=== PATIENT | female | born 1935 | race Caucasian/White ===

== ENCOUNTER 2025-01-16 12:57 | Emergency (ER) | payer OTHER, SELFPAY ==
[2025-01-16 13:00] VITALS: BP 185/85
--- NOTE | 2025-01-16 13:06 | ED.GENMED ---
History of Present Illness
General
Chief Complaint: Fall
Time Seen by Provider: 01/16/25 13:06
History of Present Illness
History of Present Illness:
FOCUSED PAST MEDICAL HISTORY
- High blood pressure, hyperlipidemia
REVIEW OF OLD RECORDS
- In 2022, the patient was admitted with increasing confusion on top of baseline advanced dementia; at that time she was treated for the possibility of a UTI
Note:
CHIEF COMPLAINT(S)
Head injury with bleeding from the left ear.
HISTORY OF PRESENT ILLNESS
The patient is an 89-year-old female with a history of multiple strokes, presenting to the emergency department due to trauma sustained in her living room. Her caregiver and daughter reported that while preparing to leave for a doctors appointment,
the patient leaned against a wall and subsequently fell backward, striking her head against the wall. Her daughter noted immediate pain in the area and observed that the injury was bleeding. Historically, the patient has difficulty hearing from her
left ear and experiences significant facial pain. The daughter also mentioned frequent urinary tract infections, with the patient having recently completed an antibiotic course. There were no symptoms of midline spinal pain, but localized pain was
noted at the site of impact. A computed tomography (CT) scan was ordered to rule out intracranial bleeding. The patient is prone to prolonged bleeding, potentially due to current or prior use of blood-thinning medications.
SOCIAL DETERMINANTS AFFECTING HEALTH
The patient�s daughter serves as her primary caregiver. This living arrangement provides the patient with daily assistance and support for her medical needs.
IMMUNIZATION HISTORY
The patient�s tetanus immunization is questionable; a tetanus booster was ordered to ensure her protection.
REVIEW OF SYSTEMS
- Head: Recent trauma causing pain and bleeding from the left ear.
- Ears: Impaired hearing in the left ear.
- Genitourinary: History of frequent urinary tract infections.
- Pain: Facial pain associated with prior strokes.
PHYSICAL EXAM
- General: The patient appears chronically weak and debilitated
- Head: There is a regular hematoma at the superior portion of the earlobe which is relatively minor however there is a puncture wound in the center of the left upper earlobe with scant active bleeding which was cleaned with saline
- C-spine: No midline c-spine tenderness; normal AROM of C-spine
- Back: Normal AROM thoracolumbar spine
- HEENT: Moist oral mucosa, no blood
- Cardiovascular: No murmurs, normal heart rate, regular rhythm, No chest wall tenderness
- Pulmonary: No respiratory distress, breath sounds are clear and equal
- Abdomen: Soft with no peritoneal signs, no tenderness
- Neurologic: Fair strength in all extremities
- Psychiatric: Very limited insight and judgment, provides no meaningful history but was able to say 'my head'
- Extremities: Nontender, no edema, moves all extremities equally
- Skin: No rash, no lesions
PLAN
1. Order a CT scan of the head to evaluate for intracranial injuries.
2. Clean and possibly suture the ear laceration.
3. Administer tetanus booster due to uncertain immunization status.
4. Monitor for possible need for transfer to a higher-level care facility if CT reveals any significant intracranial findings.
DIFFERENTIAL DIAGNOSIS
The Differential Diagnosis includes, in no particular order and is not limited to:
1. Intracranial hemorrhage
2. Basilar skull fracture
3. External ear laceration
4. Concussion
5. Contusion
6. Epistaxis
7. Subdural hematoma
8. Temporal bone fracture
9. Vertigo
10. Headache secondary to trauma
RADIOLOGY
- CT head obtained and shows no acute abnormality
SUMMARY OF ENCOUNTER
The patient, an 89-year-old female with a history of multiple strokes, was seen in the emergency department for a head injury with bleeding from the left ear following a fall. A CT scan of the head was ordered to assess for intracranial injuries,
which returned normal with no signs of internal bleeding or abnormalities in the brain. The ear injury was noted as a puncture wound that bled significantly, likely due to a hematoma. The decision was made to use adhesive glue to control the
bleeding.
PLAN
1. Administer tetanus booster due to uncertain immunization status.
2. Clean the ear wound and apply Dermabond (stronger adhesive) to control bleeding.
INDEPENDENT REVIEW OF LABS AND INTERPRETATION OF TESTS
My independent interpretation of the CT scan shows no intracranial bleeding or brain abnormalities.
PROCEDURES
Application of Dermabond to the left ear wound for bleeding control.
FOLLOW-UP INSTRUCTIONS
The patient should schedule follow-up with her primary care physician to monitor the ear injury and ensure proper healing.
MEDICAL DECISION MAKING
- Complexity of Data Reviewed: Chronic conditions affecting care include multiple strokes and left ear hearing impairment. Differential Diagnosis includes:
1. Intracranial hemorrhage
2. Basilar skull fracture
3. External ear laceration
4. Concussion
5. Contusion
6. Epistaxis
7. Subdural hematoma
8. Temporal bone fracture
9. Vertigo
10. Headache secondary to trauma
- Data:
Category 1
Clinical information was obtained from the patients daughter, who provided historical insights and current symptomatology.
Category 2
My independent interpretation of the CT scan indicated no intracranial bleeding.
- Risk:
Prescription medication was prescribed including tetanus booster.
Care significantly affected by Social Determinants of Health: The patients daughter is the primary caregiver, impacting the patients daily care and health management.
DIAGNOSIS
1. Traumatic ear laceration, ICD-10 Code: S01.311A
2. Fall-related injury, ICD-10 Code: W19.XXXA
Past History
Past History
ED Past Medical History: CVA, HTN and Other (dementia)
Social History
Tobacco: Non-smoker
Alcohol: None
Phy Exam
Physical Exam
Physical Exam:
See HPI
Course
Orders/Labs/Results
Orders:
Orders
01/16/25 13:16
CT Head W/o Iv Contrast Urgent
Comment:
Reason For Exam: trauma L side
Tetanus/Diphth/Acelpertussis [Adacel] 0.5 ml IM .ONCE ONE
Vital Signs
Initial and Last Documented VS:
Initial Vital Signs
Temp Pulse Resp BP Pulse Ox
36.8 C 77 15 185/85 98
01/16/25 13:00 01/16/25 13:00 01/16/25 13:00 01/16/25 13:00 01/16/25 13:00
Last Documented Vital Signs
Temp Pulse Resp BP Pulse Ox
36.8 C 77 15 185/85 98
01/16/25 13:00 01/16/25 13:00 01/16/25 13:00 01/16/25 13:00 01/16/25 13:07
Procedures
Laceration Closure
Left Superior Ear:
Status of Wound: clean
Size of Wound in cm: 0.5
Description of Wound Edges: ragged
Type of Closure: Dermabond-skin glue
*Pulse Oximetry
SaO2: 98
Oxygen Mode of Delivery: Room air
Patient hypoxic: no
*Critical Care Note
Total Time (30-74mins, 75-104mins- exclusive of procedures): Not Applicable
ED Attending Note
-
Portions of this chart may have been created with voice recognition software.� Occasional wrong word or��sound alike� substitutions may have occurred due to the inherent limitations of voice recognition software.
Discharge Plan
Departure
Patient Disposition: Home (Routine Discharge)
Date of Disposition: 01/16/25
Time of Disposition: 15:39
Patient with high blood pressure during this ER visit?: Yes
Discharge Problem:
Laceration of ear, Head injury
Instructions: Laceration Repair With Glue (DC), BLOOD PRESSURE
Prescriptions:
No Action
clopidogrel 75 MG tablet
75 mg PO DAILY
amlodipine 5 MG tablet
5 mg PO DAILY
omeprazole 40 MG capsule,delayed release(DR/EC)
40 mg PO DAILY
carbamazepine 200 MG tablet
200 mg PO BID
folic acid 1 MG tablet
1 mg PO DAILY
potassium chloride 10 MEQ tablet,ER particles/crystals
10 meq PO BID
memantine 10 MG tablet
10 mg PO BID
Gemtesa 75 MG tablet
75 mg PO DAILY
trazodone 100 mg Tablet
100 mg PO HS
cetirizine 10 mg Tablet
10 mg PO DAILY
oxybutynin chloride 10 mg tablet extended release 24hr
10 mg PO DAILY
risperidone 0.25 mg Tablet
0.25 mg PO DAILY
fluoxetine 20 mg capsule
20 mg PO DAILY
fluticasone propionate 50 mcg/actuation [place],Suspension
1 spray INTRANASAL DAILY
quetiapine 50 mg tablet
50 mg PO HS
omega 6-vkj-msh-fish oil [Fish Oil] 1,000 mg (120 mg-180 mg) Capsule
1 cap PO DAILY
cefdinir 300 mg capsule
300 mg PO BID Qty: 10 0RF
Referrals:
UNKNOWN - PT DOES,NOT KNOW [Family Provider]
Activity Restrictions/Additional Instructions:
Return here if worse or other concerns. CAT scan of the brain shows no bleeding around the brain. I used Dermabond tissue adhesive to close the wound of the left ear. We updated your tetanus status.
Interventions
Interventions:
*Risk Screen - Suicide Last Done: 01/16/25 13:00
*General Assessment Last Done: 01/16/25 13:00
*Neglect/Abuse Screening Last Done: 01/16/25 13:00
*ED- Fall Risk Assessment Last Done: 01/16/25 15:47
*ED COVID-19 Vaccine History Last Done: 01/16/25 13:00
*ED Influenza Vaccine History Last Done: 01/16/25 13:00
*Nursing Disposition Last Done: 01/16/25 15:47
ED-Musculoskeletal Assessment Last Done: 01/16/25 13:34
ED- Neurological Assessment Last Done: 01/16/25 13:34
ED-Skin Assessment Last Done: 01/16/25 13:34
Discharge Date and Time
Discharge Date/Time: 01/16/25 15:58
Print Language: PORTUGUESE
[2025-01-16] MEDS: ADACEL 0.5 ML IM (13:29)
== END 2025-01-16 15:58 | disposition home or self-care (01) ==
LOC: EMR 12:57
PROVIDERS: EMERGENCY PHYSICIAN Emergency Medicine
DX: S09.90XA Unspecified injury of head, initial encounter (principal); S01.312A Laceration without foreign body of left ear, initial encounter; W19.XXXA Unspecified fall, initial encounter; Y93.9 Activity, unspecified; Y92.098 Other place in other non-institutional residence as the place of occurrence of the external cause; E78.5 Hyperlipidemia, unspecified; I10 Essential (primary) hypertension; Z86.73 Personal history of transient ischemic attack (TIA), and cerebral infarction without residual deficits; F03.90 Unspecified dementia, unspecified severity, without behavioral disturbance, psychotic disturbance, mood disturbance, and anxiety; Z23 Encounter for immunization
CPT/HCPCS: 12011; 99284; 90471; 70450; 90715

== ENCOUNTER 2025-03-31 20:54 | Emergency (ER) | payer OTHER, SELFPAY ==
[2025-03-31 20:59] VITALS: BP 150/78
[2025-03-31 21:02] VITALS: BP 150/78
[2025-03-31 21:07] VITALS: BMI 25.0
[2025-03-31 21:30] LABS: Hematocrit 31.6 % (37.0-47.0); Hemoglobin 10.8 g/dL (12.0-16.0); Mean Corp Hgb Conc. 34.2 g/dL (33.0-37.0); Mean Corpuscular Volume 84.3 fL (81.0-99.0); Nucleated Red Blood Cells % 0 %; Platelet Count 149 10^3/uL (130-400); Red Cell Dist. Width 14.5 % (11.5-14.5)
[2025-03-31 21:49] LABS: ALT (SGPT) 15 U/L (0-35); AST (SGOT) 25 U/L (14-36); Albumin 4.2 g/dl (3.5-5.0); Alkaline Phosphatase 163 U/L (38-126); Blood Urea Nitrogen 19 mg/dl (7-17); Calcium 9.5 mg/dl (8.4-10.2); Carbon Dioxide 28 mmol/L (22-30); Chloride 101 mmol/L (98-107); Estimated Creatinine Clearance 49 ml/min; Glucose 104 mg/dl (70-99); Potassium 3.9 mmol/L (3.5-5.1); Sodium 135 mmol/L (135-145); Total Protein 6.8 g/dl (6.3-8.2); eGFR > 60.00
[2025-03-31 22:00] VITALS: BP 125/55
[2025-03-31 23:00] VITALS: BP 116/60
[2025-04-01] MEDS: HALDOL 2 MG IV (01:33)
--- NOTE | 2025-04-01 02:22 | ED.GENMED ---
History of Present Illness
General
Chief Complaint: Fall
Source: family (daughter)
Time Seen by Provider: 04/01/25 01:47
History of Present Illness
History of Present Illness:
89-year-old female brought to the emergency room by her daughter because the patient's had multiple falls. She has had 3 falls just in this evening. Patient does have fairly significant dementia. She lives in a private home with her cousin.
Patient's daughter states that typically the patient does not fall. She has had urinary tract infections in the past. Patient is also been more resistant to care recently. The patient herself is unable to provide any history due to dementia.
Past History
Past History
ED Past Medical History: CVA, HTN and Other (dementia)
Social History
Tobacco: Non-smoker
Alcohol: None
Phy Exam
Physical Exam
Physical Exam:
General: Awake, confused, appears chronically ill
Vitals: unremarkable
Head: Atraumatic
Eyes: Pupils equal, EOMI
Throat: Airway intact, no exudates, dry mucosa
Neck: Trachea midline
Lungs: Clear and equal b/l
Heart: Regular rate, no murmurs
Abd: Soft, Nontender, No pulsatile mass
Neuro: Grossly nonfocal
Skin: Warm, dry, no rash
Extremities: pulses equal b/l, no edema
Course
Orders/Labs/Results
Orders:
Orders
03/31/25 21:20
CMP [Comprehensive Metabolic Panel] Urgent
Complete Blood Count/With Diff Urgent
04/01/25 00:[address] [CT Head W/o Iv Contrast] Urgent
Comment:
Reason For Exam: fall on thinners
04/01/25 01:30
Haloperidol Lactate [Haldol] 2 mg IV NOW STA
04/01/25 01:31
CT Cervical Spine W/o Iv Contr Urgent
Comment:
Reason For Exam: fall, head strike
04/01/25 01:38
Electrocardiogram (*1) Urgent
Reason for Study: QTc Monitoring
04/01/25 01:39
EKG- Treatment ONCE
04/01/25 02:21
Lorazepam [Ativan] 1 mg IV NOW STA
04/01/25 04:36
Urinalysis Reflex To Culture Urgent
Date Specimen was Collected: 04/01/25
Time Specimen was Collected: 04:31
Urine Microscopic Reflex Cult Urgent
04/01/25 06:13
Case Management Consult ONCE
Case Management Consult: Discharge Planning
Abnormal Lab Results
03/31/25 04/01/25
21:20 04:36
RBC 3.75 L 10^6/uL
(4.20-5.40)
Hgb 10.8 L g/dL
(12.0-16.0)
Hct 31.6 L %
(37.0-47.0)
Absolute Lymphs (auto) 0.5 L 10^3/uL
(1.2-3.4)
Immature Gran % 0.6 H %
(0-0.5)
Neutrophils % 83.5 H %
(42.2-75.2)
Lymphocytes % 7.7 L %
(20.5-51.1)
BUN 19 H mg/dl
(7-17)
Glucose 104 H mg/dl
(70-99)
Alkaline Phosphatase 163 H U/L
(38-126)
Urine Albumin (Reflex) 1+ A
(Neg - Trace)
03/31/25 21:20
03/31/25 21:20
Vital Signs
Initial and Last Documented VS:
Initial Vital Signs
Temp Pulse Resp BP Pulse Ox
98.8 F 80 16 150/78 95
03/31/25 20:59 03/31/25 20:59 03/31/25 20:59 03/31/25 20:59 03/31/25 20:59
Last Documented Vital Signs
Temp Pulse Resp BP Pulse Ox
99.7 F 80 22 139/68 90
04/01/25 04:00 04/01/25 06:00 04/01/25 05:15 04/01/25 03:00 04/01/25 06:00
MDM/Problems Addressed
Differential Diagnosis Includes:
Subdural, CVA, UTI, electrolyte abnormality, dehydration
MDM/Problems Addressed:
Patient presents for frequent falls, weakness. Patient has fairly advanced dementia. She has been cared for in the home. Patient resides with her cousin who is of similar age. Patient's daughter visits frequently. However the patient's cousin
wants a home has not allowed visiting nurses or aids into the home. There is no evidence of an acute process at this time. The patient has labs which are quite acceptable. Urinalysis showed no evidence for UTI. Head CT shows chronic changes but
nothing acute. Overall does not appear that the patient requires admission to an acute care hospital. We will consult case management for discharge planning of either home nursing versus senior care.
*Radiology
Radiology exam reviewed: radiology read reviewed
*Pulse Oximetry
SaO2: 91
Oxygen Mode of Delivery: Room air
Patient hypoxic: yes
*EKG
Interpreted by ED Provider?: Yes
Interpretation: abnormal
Heart Rate: 77
Rate: normal
Rhythm: sinus
[place]: normal axis
Interval: normal interval
QRS Pattern: left vent hypertrophy
Ischemia: non-specific ST changes
*Mill Order Scheduler Interpretation
Rate: normal
Interpretation: normal
Rhythm: sinus
*Critical Care Note
Total Time (30-74mins, 75-104mins- exclusive of procedures): Not Applicable
ED Attending Note
-
Portions of this chart may have been created with voice recognition software.� Occasional wrong word or��sound alike� substitutions may have occurred due to the inherent limitations of voice recognition software.
Discharge Plan
Departure
Prescriptions:
No Action
clopidogrel 75 MG tablet
75 mg PO DAILY
amlodipine 5 MG tablet
5 mg PO DAILY
omeprazole 40 MG capsule,delayed release(DR/EC)
40 mg PO DAILY
carbamazepine 200 MG tablet
200 mg PO BID
folic acid 1 MG tablet
1 mg PO DAILY
potassium chloride 10 MEQ tablet,ER particles/crystals
10 meq PO BID
memantine 10 MG tablet
10 mg PO BID
Gemtesa 75 MG tablet
75 mg PO DAILY
trazodone 100 mg Tablet
100 mg PO HS
cetirizine 10 mg Tablet
10 mg PO DAILY
oxybutynin chloride 10 mg tablet extended release 24hr
10 mg PO DAILY
risperidone 0.25 mg Tablet
0.25 mg PO DAILY
fluoxetine 20 mg capsule
20 mg PO DAILY
fluticasone propionate 50 mcg/actuation [place],Suspension
1 spray INTRANASAL DAILY
quetiapine 50 mg tablet
50 mg PO HS
omega 7-wbq-maw-fish oil [Fish Oil] 1,000 mg (120 mg-180 mg) Capsule
1 cap PO DAILY
cefdinir 300 mg capsule
300 mg PO BID Qty: 10 0RF
Referrals:
Valerie Cohen MD [Family Provider, Internal Medicine]
Interventions
Interventions:
*General Assessment Last Done: 03/31/25 21:05
*Neglect/Abuse Screening Last Done: 03/31/25 21:05
*ED COVID-19 Vaccine History Last Done: 03/31/25 21:05
*ED Influenza Vaccine History Last Done: 03/31/25 21:05
[facility] Fall Risk Assessment Tool Last Done: 03/31/25 20:55
*Risk Screen - Suicide (C-SSRS) Last Done: 03/31/25 21:07
ED-Musculoskeletal Assessment Last Done: 03/31/25 23:16
ED- Neurological Assessment Last Done: 03/31/25 23:16
ED-Skin Assessment Last Done: 04/01/25 06:03
Discharge Date and Time
Print Language: LAO
[2025-04-01] MEDS: ATIVAN 1 MG IV (02:27)
[2025-04-01 02:31] VITALS: BP 160/92
[2025-04-01 03:00] VITALS: BP 139/68
[2025-04-01 04:58] LABS: Urine Character Clear (Clear)
[2025-04-01 07:18] VITALS: BP 144/55
[2025-04-01 08:00] VITALS: BP 150/76
[2025-04-01 09:00] VITALS: BP 147/80
--- NOTE | 2025-04-01 09:34 | EDCM ---
Addendum entered by Ivania Oquendo 04/01/25 10:07:
Dr Tucker updated. Daughter will need to be called when pt is ready for discharge.
Original Note:
Consult received, reviewed chart and spoke to pt's daughter Russ over the phone.
Pt lives with Russ and pt's 79yo cousin in 1 [address] with basement. 3 [address] through garage.
Pt is needs assistance with ADLs and personal care, ambulates independently but does had RW. Russ is her caregiver.
No hx VN or SNF.
PCP: Valerie Cohen
Daughter does not want her to go to SNF, agreeable to referral for [facility], referral placed in Care Port. List of private pay caregiver agencies left at bedside.
RN updated.
[2025-04-01 10:00] VITALS: BP 159/73
--- NOTE | 2025-04-01 10:09 | EDRN ---
spoke to daughter Russ, she's on her way to cone picker the patient, states she'll be here within the hour.
== END 2025-04-01 12:10 | disposition home or self-care (01) ==
LOC: EMR 20:54
PROVIDERS: Emergency Medicine; EMERGENCY PHYSICIAN Emergency Medicine; FAMILY PHYSICIAN Internal Medicine
DX: R29.6 Repeated falls (principal); I10 Essential (primary) hypertension; F03.90 Unspecified dementia, unspecified severity, without behavioral disturbance, psychotic disturbance, mood disturbance, and anxiety; R53.1 Weakness; Z86.73 Personal history of transient ischemic attack (TIA), and cerebral infarction without residual deficits; Z87.440 Personal history of urinary (tract) infections
CPT/HCPCS: 99284; 96374; 96375; 70450; 72125; 80053; 81003; 81015; 85025; 93005

== ENCOUNTER 2025-04-02 12:28 | Inpatient (IN) | payer OTHER, SELFPAY ==
[2025-04-02] VITALS (7 sets, daily range): BP systolic 133–169; BP diastolic 78–92
--- NOTE | 2025-04-02 10:08 | ED.GENMED ---
History of Present Illness
General
Chief Complaint: Musculo-Skeletal Complaint
Time Seen by Provider: 04/02/25 10:07
History of Present Illness
History of Present Illness:
FOCUSED PAST MEDICAL HISTORY
- Dementia, high blood pressure
REVIEW OF OLD RECORDS
- The patient was seen here yesterday morning after multiple falls at home. She has advanced dementia. Apparently she does not normally fall. Yesterday, she was given Haldol as she became agitated and was also given Ativan. Case management
evaluated yesterday morning but ultimately daughter was in agreement with having her go back home.
Note:
CHIEF COMPLAINT(S)
Worsening overall functional status and recurrent falls.
HISTORY OF PRESENT ILLNESS
The patient, an 89-year-old female with a past medical history of dementia, presented with a worsening overall functional status characterized by recurrent falls. This condition is atypical for her, prompting concern. She was seen in the Emergency
Room the prior morning, where head and neck CT scans were conducted and returned unremarkable. Despite the scans, her condition has persisted, warranting further medical evaluation. The patient has significant cognitive impairment and is a limited
historian, unable to provide a relevant medical history. On physical examination, advanced dementia is evident, coupled with pain on palpation of the lateral aspect of the right hip and decreased active range of motion in the right hips internal
rotation. She was disoriented to time and place and unable to follow simple commands.
ADDITIONAL HISTORY OBTAINED FROM SOURCES OTHER THAN THE PATIENT
Per EMS, the patient has a history of dementia and was reported to have recurrent falls, which are uncommon for her.
EXTERNAL RECORDS REVIEWED
The patient had a head and neck CT performed during her emergency room visit yesterday, which returned unremarkable.
PHYSICAL EXAM
General: Appears disoriented, advanced dementia noted.
Skin: Warm, dry.
Head: Normocephalic, atraumatic.
Neck: Supple, trachea midline.
Eye Ears, nose, mouth and throat: Oral mucosa moist.
Cardiovascular: Normal peripheral perfusion, No edema.
Respiratory: Respirations are non-labored.
Gastrointestinal: Abdomen nondistended.
Back: Normal range of motion, Normal alignment.
Musculoskeletal: Pain to palpation on the lateral aspect of the right hip, decreased active range of motion at the right hip.
Neurological: Disoriented to month and place, does not follow simple commands.
Psychiatric: Advanced dementia, unable to provide a coherent history.
PROBLEM LIST
Acute:
- Recurrent falls
- Right hip pain
Chronic:
- Dementia
DIFFERENTIAL DIAGNOSIS
The Differential Diagnosis includes, in no particular order and is not limited to:
1. Urinary tract infection
2. Dehydration
3. Cerebrovascular accident
4. Medication side effects
5. Cardiac arrhythmias
6. Orthostatic hypotension
7. Fracture or musculoskeletal injury
8. Delirium
9. Vestibular dysfunction
10. Postural instability due to dementia
SUMMARY OF ENCOUNTER
The patient, an 89-year-old female with a past medical history of advanced dementia, was evaluated in the emergency department for worsening functional status characterized by recurrent falls and recent right hip pain. A hip X-ray was conducted,
revealing what appears to be a subtle fracture at the site where the femur meets the pelvis. This finding was discussed with the radiologist, and it was concluded that the appearance is consistent with a fracture. The patients advanced dementia was
also noted as she was disoriented and unable to perform simple tasks or follow commands.
DISPOSITION
Admit.
ASSESSMENT
The patient presents with a possible right hip fracture alongside her advanced dementia, which complicates her ability to provide a history or engage in simple tasks.
INDEPENDENT REVIEW OF LABS AND INTERPRETATION OF TESTS
My independent interpretation of the hip X-ray indicates a subtle fracture of the hip at the junction of the femur and pelvis. This interpretation was confirmed through discussion with the radiologist.
MANAGEMENT OF THE PATIENTS CARE WAS DISCUSSED WITH
I discussed the management plan with the orthopedic doctors and the hospitalist to arrange for the patients admission to the hospital for further evaluation and management.
PLAN
The plan is to admit the patient to the hospital for further management of the suspected hip fracture, which includes consultation with an digital campaign specialist and ongoing monitoring of her cognitive status given her advanced dementia.
MEDICAL DECISION MAKING
- Number and Complexity of Problems Addressed: Chronic conditions affecting care - Dementia, and DDx list includes urinary tract infection, dehydration, cerebrovascular accident, medication side effects, cardiac arrhythmias, orthostatic hypotension,
fracture or musculoskeletal injury, delirium, vestibular dysfunction, postural instability due to dementia.
- Data:
Category 1
Clinical information was obtained from an independent historian (EMS personnel).
Category 3
Discussion of management with orthopedic doctors and the hospitalist concerning the admission for the suspected hip fracture.
- Risk:
Due to the suspected hip fracture and the complexity of her medical condition involving advanced dementia, a decision was made to admit the patient for further evaluation and treatment.
RADIOLOGY
- X-ray right hip shows impacted right subcapital fracture
LABS
- Tegretol level low, CBC unremarkable
UPDATE
- X-ray shows signs of hip fracture
- Discussed with Ortho who also wants CT imaging of the hip for further evaluation of the fracture
Past History
Past History
ED Past Medical History: CVA, HTN and Other (dementia)
Social History
Tobacco: Non-smoker
Alcohol: None
Phy Exam
Physical Exam
Physical Exam:
See HPI
Course
Orders/Labs/Results
Orders:
Orders
04/02/25 10:12
Case Management Consult ONCE
Case Management Consult: Discharge Planning
04/02/25 10:16
CR Hip - RT w/wo Pel 2-3 Vw* Urgent
Comment:
Reason For Exam: pain falls
Include a pelvis x-ray?: Yes
04/02/25 10:25
Complete Blood Count/With Diff Urgent
Tegretol (Carbamazepine) Urgent
04/02/25 10:45
Comprehensive Metabolic Panel Urgent
04/02/25 11:04
CT Pelvis W/o Iv Contrast Urgent
Comment:
Reason For Exam: Dr. Avelar wants CT hip to eval the fx
Abnormal Lab Results
04/02/25
10:25
Hct 36.3 L %
(37.0-47.0)
Absolute Lymphs (auto) 0.7 L 10^3/uL
(1.2-3.4)
Lymphocytes % 12.4 L %
(20.5-51.1)
Monocytes % 9.5 H %
(1.7-9.3)
Carbamazepine < 3.0 L ug/ml
(4-12)
04/02/25 10:25
Vital Signs
Initial and Last Documented VS:
Initial Vital Signs
Temp Pulse Resp BP Pulse Ox
37.6 C 85 16 169/92 97
04/02/25 10:05 04/02/25 10:05 04/02/25 10:05 04/02/25 10:05 04/02/25 10:05
Last Documented Vital Signs
Temp Pulse Resp BP Pulse Ox
37.6 C 85 16 169/92 97
04/02/25 10:05 04/02/25 10:05 04/02/25 10:05 04/02/25 10:05 04/02/25 10:05
*Pulse Oximetry
Patient hypoxic: no
*Critical Care Note
Total Time (30-74mins, 75-104mins- exclusive of procedures): Not Applicable
ED Attending Note
-
Portions of this chart may have been created with voice recognition software.� Occasional wrong word or��sound alike� substitutions may have occurred due to the inherent limitations of voice recognition software.
Discharge Plan
Departure
Patient Disposition: Admit
Date of Disposition: 04/02/25
Time of Disposition: 11:03
Presentation/result/management discussed w/ accepting MD/DO: Hospitalist
Discharge Problem:
Closed subcapital fracture of neck of right femur
Prescriptions:
No Action
clopidogrel 75 MG tablet
75 mg PO DAILY
amlodipine 5 MG tablet
5 mg PO DAILY
omeprazole 40 MG capsule,delayed release(DR/EC)
40 mg PO DAILY
carbamazepine 200 MG tablet
200 mg PO BID
folic acid 1 MG tablet
1 mg PO DAILY
potassium chloride 10 MEQ tablet,ER particles/crystals
10 meq PO BID
memantine 10 MG tablet
10 mg PO BID
Gemtesa 75 MG tablet
75 mg PO DAILY
trazodone 100 mg Tablet
100 mg PO HS
cetirizine 10 mg Tablet
10 mg PO DAILY
oxybutynin chloride 10 mg tablet extended release 24hr
10 mg PO DAILY
risperidone 0.25 mg Tablet
0.25 mg PO DAILY
fluoxetine 20 mg capsule
20 mg PO DAILY
fluticasone propionate 50 mcg/actuation [place],Suspension
1 spray INTRANASAL DAILY
quetiapine 50 mg tablet
50 mg PO HS
omega 3-gio-xyd-fish oil [Fish Oil] 1,000 mg (120 mg-180 mg) Capsule
1 cap PO DAILY
cefdinir 300 mg capsule
300 mg PO BID Qty: 10 0RF
Interventions
Interventions:
*General Assessment Last Done: 04/02/25 10:05
*Neglect/Abuse Screening Last Done: 04/02/25 10:05
*ED COVID-19 Vaccine History Last Done: 04/02/25 10:05
*ED Influenza Vaccine History Last Done: 04/02/25 10:05
[facility] Fall Risk Assessment Tool Last Done: 04/02/25 10:05
*Risk Screen - Suicide (C-SSRS) Last Done: 04/02/25 10:05
ED-Musculoskeletal Assessment Last Done: 04/02/25 10:14
Discharge Date and Time
Print Language: POLISH
[2025-04-02 10:38] LABS: Hematocrit 36.3 % (37.0-47.0); Hemoglobin 12.6 g/dL (12.0-16.0); Mean Corp Hgb Conc. 34.7 g/dL (33.0-37.0); Mean Corpuscular Volume 82.7 fL (81.0-99.0); Nucleated Red Blood Cells % 0 %; Platelet Count 161 10^3/uL (130-400); Red Cell Dist. Width 14.5 % (11.5-14.5)
--- NOTE | 2025-04-02 10:44 | EDCM ---
Addendum entered by Ivania Oquendo 04/02/25 11:38:
Per Dr Tucker pt has hip fracture. Will be admitted. Daughters would be interested in referrals to [facility] and [facility] when pt is ready for discharge. CM will continue to follow for all discharge planning needs.
Original Note:
Received consult, reviewed chart and met with daughters.
Pt lives with daughter Russ and pt's cousin in [address] with basement, [address] through garage.
Pt needs assistance with ADLs, independent in personal care and ambulation at baseline, uses RW.
Seen in ED 03/31 after fall at home, was discharged home with plan for [facility], unable to bear weight on R leg today.
Pt currently in xray, discussed need for xray read and PT eval before referral to SNF can be placed.
CM will continue to follow.
--- NOTE | 2025-04-02 11:44 | HPS.HSE ---
Family Physician
-
Family Physician: Hilary Brown
Chief Complaint
-
Right hip pain
History of Present Illness
The patient is an 89-year-old female with a history of advanced dementia, hypertension, previous stroke, trigeminal neuralgia, hyperlipidemia who presented with worsening overall functional status and recurrent falls, which is atypical for her. She
was evaluated in the Emergency Room yesterday after multiple falls at home; head and neck CT scans were unremarkable. During that visit, she became agitated and was administered Haldol and Ativan. Case management assessed her, and her daughter
agreed to discharge her home. Today, her condition persists, prompting further evaluation. She is a limited historian due to significant cognitive impairment and was disoriented to time and place, unable to follow simple commands. All history taken
from daughter at bedside, patient had pain on palpation of the lateral aspect of the right hip, and decreased active range of motion in internal rotation of the right hip.
Hip x-ray:
Acute fracture of the subcapital right femoral neck. Minor impaction but no significant displacement.
No dislocation. The bony pelvis is intact. Chronic appearing mild bony remodeling of the right inferior pubic ramus. Vascular calcifications.
Discussed with orthopedic, CT pelvis done showed:
Acute, nondisplaced fracture of the subcapital right femoral neck. Subtle fracture plane, best seen at the anterior periphery of the right femur (series 202, image 46). No hip joint dislocation.
Acute fracture of the right inferior pubic ramus with mild displacement.
Mild deformities at the junction of the right anterior acetabulum with the right superior pubic ramus, at the superior margin of the right pubic body, and at the anterior aspect of the right sacral ala, also suspicious for acute nondisplaced
fractures.
Patient will be admitted under hospitalist service
Medical History
Past Medical History
Past Medical History: Reports CVA, Dementia, HTN and Psychiatric
Additional Past Medical History:
Advancing dementia/trigeminal neuralgia
Past Surgical History: Reports Orthopedic
Additional Past Surgical History:
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
Social History
Unable to obtain full social history at this time due to: Dementia
Tobacco: Non-smoker
Drug: None
Personal:
Living: With Family
Family History
Family History: Not pertinent
Allergies / Home Medications
Allergies reflects when Allergies were last updated in [facility].
Home Medications with original date entered in [facility]
Allergy/Medication List:
Allergies
Allergy/AdvReac Type Severity Reaction Status Date / Time
No Known Allergies Allergy Verified 04/02/25 10:05
Home Medications
amlodipine 5 mg tablet 5 mg PO DAILY Blood Pressure 10/19/20
clopidogrel 75 mg tablet 75 mg PO DAILY Blood Clot Prevention/Tx 10/19/20
fluoxetine 20 mg capsule 20 mg PO DAILY Mental Health/Anxiety 03/28/23
fluticasone propionate 50 mcg/actuation nasal spray,suspension 1 spray intranasal DAILY Allergies 03/28/23
omega 1-ncu-hkn-fish oil 1,000 mg (120 mg-180 mg) capsule (Fish Oil) 1 cap PO DAILY Supplement 03/28/23
acetaminophen 325 mg tablet 325 mg PO DAILYPRN PRN mild pain 04/02/25
oxcarbazepine 300 mg tablet 600 mg PO TID 04/02/25
potassium chloride 20 mEq tablet,extended release 20 meq PO DAILY 04/02/25
rosuvastatin 5 mg tablet 5 mg PO QPM 04/02/25
vibegron 75 mg tablet (Gemtesa) 75 mg PO DAILY 04/02/25
Review of Systems
-
Unable to obtain full review of systems at this time due to: Dementia
History Source: Family
A 12 point ROS was completed and negative except as noted: Yes
Constitutional: Denies Fever, Weight Gain, Weight Loss, Fatigue or Sleep Disturbance
EENT: Denies Tearing, Sore Throat, Mouth Pain, Mouth Swelling or Runny Nose
Respiratory: Reports Cough; Denies Hemoptysis or Trouble Breathing
Cardiac: Denies Chest Pain, Diaphoresis, Palpitations or Syncope
Abdomen/GI: Denies Abdominal Pain, Nausea, Vomiting, Diarrhea, Constipated, Bloody Stools or Black Stools
: Denies Dysuria, Frequency, Flank Pain, Incontinence, Difficulty Voiding, Urgency, Bleeding or Dark Urine
Musculoskeletal: Reports Joint Pain and Muscle Pain; Denies Joint Swelling, Muscle Stiffness or Edema
Skin: Denies Itching or Rash
Neurological: Denies Dizzy, Headache, Weakness or Numbness
Endocrine: Denies Polyuria, Polydipsia or Temp Intolerance
Hematologic/Lymphatic: Denies Bleeding, Swollen Glands or Bruising
Psych: Reports Calm; Denies Depression, Anxiety or Panic Disorder
Physical Exam
Vital Signs
Vital Signs
Temp Pulse Resp BP Pulse Ox
99.7 F 85 16 169/92 97
04/02/25 10:05 04/02/25 10:05 04/02/25 10:05 04/02/25 10:05 04/02/25 10:05
Physical Exam
General: Well Developed, Well Nourished, No Apparent Distress, Comfortable and Good Appetite; No Pain, Chills or Sweats
HEENT: NormoCephalic, Moist mucous membranes, Atraumatic, Good Dentition, PERRLA, Nose Appears Normal and Ears Appear Normal
Respiratory: Clear
Cardiac: S1/S2 and Regular Rhythm
Breast: Deferred by me
GI: Soft, Non Tender, Non Distended and Normal Bowel Sounds
Genito-urinary: Deferred by me
Musculoskeletal: No Clubbing and Other ( right hip tender)
Skin: Warm; No Rash, Jaundice, Ulcers, Lesions or Decubitus Ulcers
Neuro: Awake, Alert, Oriented, AO x 3, No Motor Deficits, Nonfocal/grossly intact and Cranial Nerves Intact
Hematologic/Lymphatic: No Lymphadenopathy
Psych: Calm
Laboratory Results
-
04/02/25 10:25
Laboratory Results
Total Bilirubin Cancelled 04/02/25 10:25
AST Cancelled 04/02/25 10:25
ALT Cancelled 04/02/25 10:25
Alkaline Phosphatase Cancelled 04/02/25 10:25
Data Reviewed
-
Diagnostic Radiology: Report Reviewed by me
CT Scan: Report Reviewed by me
Medical Tests (Nuc Med, Echo, EKG etc): Report Reviewed by me
Lab Data: Labs Reviewed by me
Old Records: Reviewed
Impression/Plan
-
IMPRESSION:
89-year-old female with a history of advanced dementia, hypertension, previous stroke, trigeminal neuralgia, hyperlipidemia who presented with worsening overall functional status and recurrent falls, which is atypical for her. She was evaluated in
the Emergency Room yesterday after multiple falls at home; head and neck CT scans were unremarkable. During that visit, she became agitated and was administered Haldol and Ativan. Case management assessed her, and her daughter agreed to discharge
her home. Today, her condition persists, prompting further evaluation. She is a limited historian due to significant cognitive impairment and was disoriented to time and place, unable to follow simple commands. All history taken from daughter at
bedside, patient had pain on palpation of the lateral aspect of the right hip, and decreased active range of motion in internal rotation of the right hip.
Hip x-ray:
Acute fracture of the subcapital right femoral neck. Minor impaction but no significant displacement.
No dislocation. The bony pelvis is intact. Chronic appearing mild bony remodeling of the right inferior pubic ramus. Vascular calcifications.
Discussed with orthopedic, CT pelvis done showed:
Acute, nondisplaced fracture of the subcapital right femoral neck. Subtle fracture plane, best seen at the anterior periphery of the right femur (series 202, image 46). No hip joint dislocation.
Acute fracture of the right inferior pubic ramus with mild displacement.
Mild deformities at the junction of the right anterior acetabulum with the right superior pubic ramus, at the superior margin of the right pubic body, and at the anterior aspect of the right sacral ala, also suspicious for acute nondisplaced
fractures.
Patient will be admitted under hospitalist service
Assessment/plan:
Status post fall with closed subcapital fracture of the neck of the right femur
Patient status post fall, presented on 04/01 was negative head and neck CT scan.
Came back with head pain.
In the hip x-ray:
Acute fracture of the subcapital right femoral neck. Minor impaction but no significant displacement.
No dislocation. The bony pelvis is intact. Chronic appearing mild bony remodeling of the right inferior pubic ramus. Vascular calcifications.
Discussed with orthopedic, CT pelvis done showed:
Acute, nondisplaced fracture of the subcapital right femoral neck. Subtle fracture plane, best seen at the anterior periphery of the right femur (series 202, image 46). No hip joint dislocation.
Acute fracture of the right inferior pubic ramus with mild displacement.
Mild deformities at the junction of the right anterior acetabulum with the right superior pubic ramus, at the superior margin of the right pubic body, and at the anterior aspect of the right sacral ala, also suspicious for acute nondisplaced
fractures.
Pain control.
Orthopedic consult.
N.p.o. after Midnight.
Essential Hypertension
Continue amlodipine 5 mg PO daily
Hyperlipidemia
Hold omega-3 fish oil 1,000 mg PO daily
History of Stroke
Hold clopidogrel 75 mg PO daily
Depression/ Dementia
Continue fluoxetine 20 mg PO daily
Overactive bladder.
Continue�Gemtesa
Trigeminal Neuralgia
Carbamazepine, level less than 3.0
CODE STATUS: Full code
DVT prophylaxis: SCD for now
Diet: regular, N.p.o. after Midnight.
Family communication: Discussed with daughter at bedside
Total time spent on today's encounter was 75 minutes which included time spent in counseling the patient/family regarding diagnosis and treatment plan as listed above, goals of care, and symptom management. Case was discussed with nursing staff,
specialists, and care coordinators/case management. All labs and imaging personally reviewed by me. Remainder the time spent in detailed review of previous records, lab data, imaging, and other medical provider documentation.
[2025-04-02] MEDS: MORPHINE SULFATE 2 MG IV (16:47)
[2025-04-02] MEDS: KCL 20 MEQ PO (16:47)
[2025-04-02] MEDS: TRILEPTAL 600 MG PO ×2 (16:57→23:30)
--- NOTE | 2025-04-02 17:19 | W.PN.UPDATE ---
Update Note
Progress Note Update
Patient seen and examined at bedside. Long discussion was had with patient's family at bedside
89-year-old female with nondisplaced right subcapital femoral neck fracture, associated nondisplaced pelvic ring injury
Nonweightbearing right lower extremity
N.p.o. midnight
Pain control
Please hold anticoagulation preparation for OR
Plan: 2 OR tomorrow for cannulated screw fixation right femoral neck fracture pending OR availability and medical clearance
Formal consult note to follow
Please reach out with questions or concerns
[2025-04-02] MEDS: CRESTOR 5 MG PO (18:55)
[2025-04-03] VITALS (14 sets, daily range): BP systolic 96–153; BP diastolic 47–89
--- NOTE | 2025-04-03 00:20 | PTCARENOTE ---
Pt. arrived to unit from ED via stretcher. Pt. pulled over from stretcher to bed 336-1 on . Pt. AAOx1, oriented to self only. Very [place]. Bed alarm placed. Plan of care ongoing.
[2025-04-03 07:20] LABS: Hematocrit 33.1 % (37.0-47.0); Hemoglobin 11.5 g/dL (12.0-16.0); Mean Corp Hgb Conc. 34.7 g/dL (33.0-37.0); Mean Corpuscular Volume 84.9 fL (81.0-99.0); Platelet Count 135 10^3/uL (130-400); Red Cell Dist. Width 14.2 % (11.5-14.5)
[2025-04-03 07:42] LABS: Blood Urea Nitrogen 23 mg/dl (7-17); Calcium 9.1 mg/dl (8.4-10.2); Carbon Dioxide 25 mmol/L (22-30); Chloride 100 mmol/L (98-107); Glucose 80 mg/dl (70-99); Potassium 3.2 mmol/L (3.5-5.1); Sodium 135 mmol/L (135-145); eGFR > 60.00
--- NOTE | 2025-04-03 08:36 | VNURNOTE ---
Chart reviewed. 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 Would need new VN referral if DC plan is for home. Liaison remains available, will watch for final DC plan.
[2025-04-03] MEDS: KCL 20 MEQ PO (08:58)
[2025-04-03] MEDS: NORVASC 5 MG PO (08:58)
[2025-04-03] MEDS: PROZAC 20 MG PO (08:58)
[2025-04-03] MEDS: KCL ELIXIR 40 MEQ PO (08:58)
--- NOTE | 2025-04-03 09:03 | CM ---
For OR today.
Will need PT OT evals postop to assist with discharge planning .
May need SNF and auth
PLAN Awaiting postop PT evals
[2025-04-03] MEDS: TRILEPTAL 600 MG PO ×2 (09:47→16:09)
--- NOTE | 2025-04-03 11:24 | W.PN.HOSP.TC ---
Today's Communication/Plan
-
OR today
Assessment / Plan
Assessment / Plan
Impression:
89-year-old female with a history of advanced dementia, hypertension, previous stroke, trigeminal neuralgia, hyperlipidemia who presented with worsening overall functional status and recurrent falls, which is atypical for her. She was evaluated in
the Emergency Room yesterday after multiple falls at home; head and neck CT scans were unremarkable. During that visit, she became agitated and was administered Haldol and Ativan. Case management assessed her, and her daughter agreed to discharge
her home. Today, her condition persists, prompting further evaluation. She is a limited historian due to significant cognitive impairment and was disoriented to time and place, unable to follow simple commands. All history taken from daughter at
bedside, patient had pain on palpation of the lateral aspect of the right hip, and decreased active range of motion in internal rotation of the right hip.
Hip x-ray:
Acute fracture of the subcapital right femoral neck. Minor impaction but no significant displacement.
No dislocation. The bony pelvis is intact. Chronic appearing mild bony remodeling of the right inferior pubic ramus. Vascular calcifications.
Discussed with orthopedic, CT pelvis done showed:
Acute, nondisplaced fracture of the subcapital right femoral neck. Subtle fracture plane, best seen at the anterior periphery of the right femur (series 202, image 46). No hip joint dislocation.
Acute fracture of the right inferior pubic ramus with mild displacement.
Mild deformities at the junction of the right anterior acetabulum with the right superior pubic ramus, at the superior margin of the right pubic body, and at the anterior aspect of the right sacral ala, also suspicious for acute nondisplaced
fractures.
Plan follow-up for 04/03
Assessment/plan:
Status post fall with closed subcapital fracture of the neck of the right femur
Patient status post fall, presented on 04/01 was negative head and neck CT scan.
Came back with head pain.
In the hip x-ray:
Acute fracture of the subcapital right femoral neck. Minor impaction but no significant displacement.
No dislocation. The bony pelvis is intact. Chronic appearing mild bony remodeling of the right inferior pubic ramus. Vascular calcifications.
Discussed with orthopedic, CT pelvis done showed:
Acute, nondisplaced fracture of the subcapital right femoral neck. Subtle fracture plane, best seen at the anterior periphery of the right femur (series 202, image 46). No hip joint dislocation.
Acute fracture of the right inferior pubic ramus with mild displacement.
Mild deformities at the junction of the right anterior acetabulum with the right superior pubic ramus, at the superior margin of the right pubic body, and at the anterior aspect of the right sacral ala, also suspicious for acute nondisplaced
fractures.
Pain control.
Orthopedic consult.
N.p.o. for OR today 04/03
Essential Hypertension
Continue amlodipine 5 mg PO daily
Hyperlipidemia
Hold omega-3 fish oil 1,000 mg PO daily
History of Stroke
Hold clopidogrel 75 mg PO daily
Normocytic anemia.
Hemoglobin stayed stable
Depression/ Dementia
Continue fluoxetine 20 mg PO daily
Overactive bladder.
Continue�Gemtesa
Trigeminal Neuralgia
Carbamazepine, level less than 3.0
CODE STATUS: Full code
DVT prophylaxis: SCD for now
Diet: regular, N.p.o.
Family communication: Discussed with daughter at bedside
Disposition: OR today
Total time spent on today's encounter was 65 minutes which included time spent in counseling the patient/family regarding diagnosis and treatment plan as listed above, goals of care, and symptom management. Case was discussed with nursing staff,
specialists, and care coordinators/case management. All labs and imaging personally reviewed by me. Remainder the time spent in detailed review of previous records, lab data, imaging, and other medical provider documentation.
Anticipated Discharge: > 48 hours
Subjective/Interval History
-
Date of Service: April 03, 2025
Patient confused, cannot provide interval history.
For OR today
Objective Data
-
Labs:
Laboratory Results
04/03/25
06:41
WBC 6.0
Hgb 11.5 L
Hct 33.1 L
Plt Count 135
Sodium 135
Potassium 3.2 L
Chloride 100
Carbon Dioxide 25
BUN 23 H
Creatinine 0.8
Glucose 80
Calcium 9.1
Vital Signs:
Vital Signs
Temp Pulse Resp BP Pulse Ox
97.6 F 97 16 111/76 95
04/03/25 07:26 04/03/25 07:26 04/03/25 07:26 04/03/25 07:26 04/03/25 07:30
I&O
04/02/25 04/03/25 04/04/25
06:59 06:59 06:59
Output Total 380 / 380
Balance -380 / -380
Physical Exam
-
General: Well Developed
HEENT: Atraumatic, No Ptosis, PERRLA and Nose Appears Normal
Respiratory: Clear to Auscultation
Cardiac: Regular Rhythm and S1/S2
Breast: Deferred by me
GI: Soft, Nontender, Nondistended and Normal Bowel Sounds
Genito-urinary: No Costovertebral Tender
Musculoskeletal: Other (Right hip tender)
Skin: Warm
Neuro: Awake and Other (Confused)
Psych: Confused and Agitated
Data Reviewed
-
Diagnostic Radiology: Image personally visualized and interpreted and Report Reviewed by me
CT Scan: Image personally visualized and interpreted and Report Reviewed by me
Ultrasound: Image personally visualized and interpreted and Report Reviewed by me
MRI: Image personally visualized and interpreted and Report Reviewed by me
Medical Tests (Nuc Med, Echo etc): Image personally visualized and interpreted and Report Reviewed by me
Labs: Labs Reviewed by me
Old Records: Reviewed
[2025-04-03] MEDS: CRESTOR PO (17:05)
--- NOTE | 2025-04-03 19:13 | SUR.PHASEI ---
REc'd flat in bed, unresponsive
--- NOTE | 2025-04-03 19:19 | OR.RPT ---
Operative Report
Operative Report
Date
04/03/2025
Anesthesia Type:
General
Operative Indications:
Right femoral neck fracture
Operative Findings :
Same nondisplaced
Complications:
None
Implants:
6.5 mm cannulated partially-threaded screws x 3
Procedure and Technique:
Close reduction cannulated screw fixation right femoral neck fracture
INDICATIONS FOR PROCEDURE:
Patient is a 89-year-old female history of dementia sustained recent fall complaints of right hip pain inability to bear weight. She was subsequently diagnosed with nondisplaced right femoral neck fracture. She was admitted to the medical service.
Orthopedics was consulted for further evaluation and treatment. I do long detail discussion with the patient's family at bedside regarding diagnosis and treatment options. We discussed postsurgical nonsurgical options. After discussion we
mutually elected to proceed with surgical intervention in the form of cannulated screw fixation/stabilization of right nondisplaced femoral neck fracture. We discussed risks benefits and alternatives to surgery. Discussed the usual expected
perioperative postoperative course. No guarantees were given. After discussion written informed consent was obtained.
OPERATIVE PROCEDURE:
Patient was seen and identified in the preoperative holding area. Operative extremity was marked. All questions were addressed and answered. Patient was taken to the operating room where they were placed supine on fracture table after general
anesthesia was administered. Nonoperative leg was placed in a scissored position. Operative extremities prepped and draped in normal sterile fashion. Preoperative imaging confirmed nondisplaced femoral neck fracture. Timeout was performed again
identifying the correct operative extremity. Preoperative antibiotics were addressed. Small 2 cm incision was made over the lateral hip. Sharp dissection was carried through skin subcutaneous tissues. Guidewires were then placed in an inverted
triangle position advanced to appropriate depth confirmed to be in good position on orthogonal imaging. Appropriately sized partially-threaded cannulated screws were then placed into the hip and an inverted triangle configuration ensuring that
screw threads were beyond the fracture site. Orthogonal imaging confirmed appropriate position of screws without articular penetration. Satisfied with extent of surgery wound was copiously irrigated normal saline solution. Skin was closed in
layered fashion utilizing 2-0 Vicryl for subcutaneous layer yanet for skin. Sterile dressings were applied consisting of Aquacel dressing. Anesthesia was reversed and patient was taken to PACU in stable condition. Postoperative plans include
weightbearing the patient's tolerance with the use of a walker. Recommend DVT prophylaxis consisting of Lovenox x 28 days daily renally dosed. Plan to see patient back in the office in 2 to 3 weeks for repeat clinical assessment repeat radiographs
of right hip.
Disposition:
PACU stable condition
--- NOTE | 2025-04-03 19:27 | CON.ORTHO ---
Consultation
-
Date/Time Consultation Performed: 04/02/2025
Consultation - Orthopedics
History
89-year-old female history of dementia presented to the emergency department after multiple recent falls. She was ultimately diagnosed with a nondisplaced right femoral neck fracture. She was admitted to the hospitalist service. Orthopedics is
consulted for further evaluation and treatment. Patient was unable to provide history given mental status. Family at bedside to provide some history. They report that again she sustained multiple falls at home and recently after fall was really
unable to bear weight to the right lower extremity prompting her presentation to the emergency department. She lives with one of her daughters.
Allergies / Home Medications
Past medical history: CVA, dementia, hypertension, trigeminal neuralgia
Past surgical history: Bilateral total knee arthroplasty
Social history: Dementia, lives with family
Family history: Nonpertinent
Allergy/AdvReac Type Severity Reaction Status Date / Time
No Known Allergies Allergy Verified 04/02/25 10:05
�Medication �Instructions �Recorded
amlodipine 5 mg tablet 5 mg PO DAILY Blood Pressure 10/19/20
clopidogrel 75 mg tablet 75 mg PO DAILY Blood Clot 10/19/20
Prevention/Tx
fluoxetine 20 mg capsule 20 mg PO DAILY depression/anxiety 03/28/23
fluticasone propionate 50 1 spray intranasal DAILY Allergies 03/28/23
mcg/actuation nasal
spray,suspension
omega 7-mtd-kzb-fish oil 1,000 mg 1 cap PO DAILY Supplement 03/28/23
(120 mg-180 mg) capsule (Fish Oil)
acetaminophen 325 mg tablet 325 mg PO DAILYPRN PRN mild pain 04/02/25
oxcarbazepine 300 mg tablet 600 mg PO TID trigeminal neuralgia 04/02/25
potassium chloride 20 mEq 20 meq PO DAILY Electrolyte 04/02/25
tablet,extended release Repletion
rosuvastatin 5 mg tablet 5 mg PO QPM cholesterol 04/02/25
vibegron 75 mg tablet (Gemtesa) 75 mg PO DAILY Urinary Issue 04/02/25
Vital Signs / Lab Results
Temp Pulse Resp BP Pulse Ox
98.8 F 77 12 104/86 100
04/03/25 19:09 04/03/25 19:16 04/03/25 19:16 04/03/25 19:16 04/03/25 19:16
04/03/25 06:41
04/03/25 06:41
10 point review systems reviewed unable to be obtained secondary to mental status
General: Pleasant, no acute distress
Musculoskeletal right lower extremity
Skin intact, no erythema or ecchymotic staining
Leg lengths equal
Tenderness palpation of groin and lateral trochanteric flare
Painful logroll
No palpable ipsilateral knee effusion
Spontaneously moving toes
Brisk cap refill
No visible grimace with palpation along bones or joints of tertiary exam
Diagnostic studies
X-ray of right hip and CT scan independently viewed by myself. Radiology report reviewed. There is a nondisplaced mildly impacted subcapital femoral neck fracture. Is also evidence of right pubic root fracture as well as right sacral halie fracture
Assessment / Plan
89-year-old female history of dementia with nondisplaced right femoral neck fracture as well as pubic ring injury. Had a long and detailed discussion with the patient's family at bedside regarding diagnosis and treatment options. We discussed
postsurgical nonsurgical options. We discussed both fixation and arthroplasty options. Ultimately we mutually agreed to proceed with surgical intervention in the form of cannulated screw fixation/stabilization. We discussed risks benefits and
alternatives of surgery. We discussed the usual expected perioperative postoperative course. No guarantees were given. After discussion verbal informed consent was obtained from family
Nonweightbearing right lower extremity
Pain control
N.p.o. in preparation for OR
Please hold anticoagulation
Plan: 2 OR 04/03/2025 for cannulated screw fixation right femoral neck fracture pending OR availability and medical clearance
--- NOTE | 2025-04-03 19:34 | SUR.PHASEI ---
More alert, holding head up repositioned, nikos well, lip care given oriented x 3 by RN, floor RN unavailable, starting to pick at blankets,reassured
[2025-04-03] MEDS: TRILEPTAL PO ×2 (21:22→21:43)
[2025-04-03] MEDS: COLACE PO ×2 (21:22→21:42)
[2025-04-03] MEDS: NORMOSOL-R/PLASMALYTE-A 1000 IV (21:22)
[2025-04-04] MEDS: ANCEF 5 IV ×2 (03:32→10:19)
[2025-04-04 07:31] VITALS: BP 107/51
[2025-04-04 07:39] LABS: Hematocrit 28.4 % (37.0-47.0); Hemoglobin 9.7 g/dL (12.0-16.0); Mean Corp Hgb Conc. 34.2 g/dL (33.0-37.0); Mean Corpuscular Volume 84.5 fL (81.0-99.0); Platelet Count 133 10^3/uL (130-400); Red Cell Dist. Width 14.4 % (11.5-14.5)
--- NOTE | 2025-04-04 08:09 | W.PN.HOSP.TC ---
Today's Communication/Plan
-
PT/OT consult
Otherwise patient medically clear for Dc
Assessment / Plan
Assessment / Plan
Impression:
89-year-old female with a history of advanced dementia, hypertension, previous stroke, trigeminal neuralgia, hyperlipidemia who presented with worsening overall functional status and recurrent falls, which is atypical for her. She was evaluated in
the Emergency Room yesterday after multiple falls at home; head and neck CT scans were unremarkable. During that visit, she became agitated and was administered Haldol and Ativan. Case management assessed her, and her daughter agreed to discharge
her home. Today, her condition persists, prompting further evaluation. She is a limited historian due to significant cognitive impairment and was disoriented to time and place, unable to follow simple commands. All history taken from daughter at
bedside, patient had pain on palpation of the lateral aspect of the right hip, and decreased active range of motion in internal rotation of the right hip.
Hip x-ray:
Acute fracture of the subcapital right femoral neck. Minor impaction but no significant displacement.
No dislocation. The bony pelvis is intact. Chronic appearing mild bony remodeling of the right inferior pubic ramus. Vascular calcifications.
Discussed with orthopedic, CT pelvis done showed:
Acute, nondisplaced fracture of the subcapital right femoral neck. Subtle fracture plane, best seen at the anterior periphery of the right femur (series 202, image 46). No hip joint dislocation.
Acute fracture of the right inferior pubic ramus with mild displacement.
Mild deformities at the junction of the right anterior acetabulum with the right superior pubic ramus, at the superior margin of the right pubic body, and at the anterior aspect of the right sacral ala, also suspicious for acute nondisplaced
fractures.
status post right cannulated hip screw
Assessment/plan:
Status post fall with closed subcapital fracture of the neck of the right femur
Patient status post fall, presented on 04/01 was negative head and neck CT scan.
Came back with head pain.
In the hip x-ray:
Acute fracture of the subcapital right femoral neck. Minor impaction but no significant displacement.
No dislocation. The bony pelvis is intact. Chronic appearing mild bony remodeling of the right inferior pubic ramus. Vascular calcifications.
Discussed with orthopedic, CT pelvis done showed:
Acute, nondisplaced fracture of the subcapital right femoral neck. Subtle fracture plane, best seen at the anterior periphery of the right femur (series 202, image 46). No hip joint dislocation.
Acute fracture of the right inferior pubic ramus with mild displacement.
Mild deformities at the junction of the right anterior acetabulum with the right superior pubic ramus, at the superior margin of the right pubic body, and at the anterior aspect of the right sacral ala, also suspicious for acute nondisplaced
fractures.
Pain control.
Orthopedic consulted.
04/04
Patient status post right cannulated hip screw
PT/OT consulted
Essential Hypertension
Continue amlodipine 5 mg PO daily
Hyperlipidemia
Hold omega-3 fish oil 1,000 mg PO daily
History of Stroke
Hold clopidogrel 75 mg PO daily
Normocytic anemia.
Hemoglobin stayed stable
Depression/ Dementia
Continue fluoxetine 20 mg PO daily
Overactive bladder.
Continue�Gemtesa
Trigeminal Neuralgia
Carbamazepine, level less than 3.0
CODE STATUS: Full code
DVT prophylaxis: SCD for now
Diet: regular, N.p.o.
Family communication: Discussed with daughter at bedside
Disposition: PT/OT consult
Otherwise patient medically clear for Dc
Total time spent on today's encounter was 65 minutes which included time spent in counseling the patient/family regarding diagnosis and treatment plan as listed above, goals of care, and symptom management. Case was discussed with nursing staff,
specialists, and care coordinators/case management. All labs and imaging personally reviewed by me. Remainder the time spent in detailed review of previous records, lab data, imaging, and other medical provider documentation.
Anticipated Discharge: Today
Subjective/Interval History
-
Date of Service: April 04, 2025
Patient seen and examined at bedside, confused, current provide interval history, pending physical therapy.
Objective Data
-
Labs:
Laboratory Results
04/04/25
07:08
WBC 3.7 L
Hgb 9.7 L
Hct 28.4 L
Plt Count 133
Sodium Pending
Potassium Pending
Chloride Pending
Carbon Dioxide Pending
BUN Pending
Creatinine Pending
Glucose Pending
Calcium Pending
Vital Signs:
Vital Signs
Temp Pulse Resp BP Pulse Ox
97.5 F 81 17 107/51 96
04/04/25 07:31 04/04/25 07:31 04/04/25 07:31 04/04/25 07:31 04/04/25 07:31
I&O
04/03/25 04/04/25 04/05/25
06:59 06:59 06:59
Intake Total 50 / 50
Output Total 380 / 380
Balance -380 / -380 50 / 50
Physical Exam
-
General: Well Developed
HEENT: Atraumatic, No Ptosis, PERRLA and Nose Appears Normal
Respiratory: Clear to Auscultation
Cardiac: Regular Rhythm and S1/S2
Breast: Deferred by me
GI: Soft, Nontender, Nondistended and Normal Bowel Sounds
Genito-urinary: No Costovertebral Tender
Musculoskeletal: Other (Right hip surgical site clean)
Skin: Warm
Neuro: Awake and Other (Confused)
Psych: Confused and Agitated
[2025-04-04 08:28] LABS: Blood Urea Nitrogen 37 mg/dl (7-17); Calcium 8.6 mg/dl (8.4-10.2); Carbon Dioxide 25 mmol/L (22-30); Chloride 102 mmol/L (98-107); Estimated Creatinine Clearance 33 ml/min; Glucose 91 mg/dl (70-99); Potassium 3.4 mmol/L (3.5-5.1); Sodium 136 mmol/L (135-145); eGFR > 60.00
[2025-04-04] MEDS: LOVENOX 40 MG SC (08:49)
[2025-04-04] MEDS: PROZAC 20 MG PO (08:49)
[2025-04-04] MEDS: NORVASC 5 MG PO (08:49)
[2025-04-04] MEDS: COLACE 100 MG PO ×2 (08:49→22:38)
[2025-04-04] MEDS: TRILEPTAL 600 MG PO ×3 (08:49→22:38)
[2025-04-04] MEDS: KCL 20 MEQ PO (08:49)
[2025-04-04] MEDS: NORMOSOL-R/PLASMALYTE-A 1000 IV (09:04)
--- NOTE | 2025-04-04 09:45 | W.PN.ORTHO ---
Today's Communication / Plan
-
89-year-old female postop day 1 status post closed reduction cannulated screw fixation right femoral neck fracture doing well
Weightbearing as tolerated right lower extremity with walker
PT OT
Pain control
Medical management per primary team
DVT prophylaxis: Recommend Lovenox x 28 days daily, renally dosed
Follow-up outpatient with myself in 2 to 3 weeks repeat clinical assessment removal of yanet
Subjective
.
.:
Patient appears comfortable this morning. Unable to engage in any meaningful dialogue with patient. Per nursing no reported events overnight. They report that she appears much more comfortable this morning than yesterday.
Vital Signs and Labs
.
Vital Signs and Labs:
Lab Results
04/04/25 07:08
04/04/25 07:08
Temp Pulse Resp BP Pulse Ox
97.5 F 81 17 107/51 96
04/04/25 07:31 04/04/25 07:31 04/04/25 07:31 04/04/25 07:31 04/04/25 07:31
Physical Exam
-
Musculoskeletal right lower extremity
Skin intact, mild swelling noted thigh
Dressing in place with minimal bloody drainage
No pain elicited with logroll
Brisk cap refill
Unable to perform detailed motor or sensory examination secondary to mental status
[2025-04-04 12:22] VITALS: BP 115/53; PULSE 89; O2SAT 95
[2025-04-04 12:23] VITALS: BP 115/53; PULSE 89; O2SAT 94
[2025-04-04 15:26] VITALS: BP 116/76
[2025-04-04] MEDS: CRESTOR 5 MG PO (17:00)
[2025-04-04 23:00] VITALS: BP 119/61
[2025-04-05 03:51] VITALS: BP 144/79
[2025-04-05 07:33] VITALS: BP 145/56
[2025-04-05] MEDS: LOVENOX 40 MG SC (07:45)
[2025-04-05] MEDS: KCL 20 MEQ PO (07:46)
[2025-04-05] MEDS: TRILEPTAL 600 MG PO ×3 (07:46→21:34)
[2025-04-05] MEDS: PROZAC 20 MG PO (07:49)
[2025-04-05] MEDS: NORVASC 5 MG PO (07:49)
[2025-04-05] MEDS: COLACE 100 MG PO ×2 (07:49→21:34)
--- NOTE | 2025-04-05 08:52 | W.PN.HOSP.TC ---
Today's Communication/Plan
-
see plan
Assessment / Plan
Assessment / Plan
Admission summary: 89-year-old female with a history of advanced dementia, hypertension, previous stroke, trigeminal neuralgia, hyperlipidemia who presented with worsening overall functional status and recurrent falls, which is atypical for her. She
was evaluated in the Emergency Room yesterday after multiple falls at home; head and neck CT scans were unremarkable. During that visit, she became agitated and was administered Haldol and Ativan. Case management assessed her, and her daughter
agreed to discharge her home. Today, her condition persists, prompting further evaluation. She is a limited historian due to significant cognitive impairment and was disoriented to time and place, unable to follow simple commands. All history taken
from daughter at bedside, patient had pain on palpation of the lateral aspect of the right hip, and decreased active range of motion in internal rotation of the right hip.
Gen: NAD, Awake and alert
Eyes: EOMI, PERRLA, no scleral icterus.
Neck: supple.
CV: RRR, +S1/S2, 2/6 systolic murmur
Resp: CTAB, no rales, wheezes, or rhonchi.
Abd: +BS, soft, NT, ND
Skin: No rashes. trace RLE edema
Neuro: CN 2-12 intact, non-focal.
Psych: Normal mood and affect.
CT pelvis: Acute, nondisplaced fracture of the subcapital right femoral neck. Subtle fracture plane, best seen at the anterior periphery of the right femur (series 202, image 46). No hip joint dislocation. Acute fracture of the right inferior pubic
ramus with mild displacement. Mild deformities at the junction of the right anterior acetabulum with the right superior pubic ramus, at the superior margin of the right pubic body, and at the anterior aspect of the right sacral ala, also suspicious
for acute nondisplaced fractures.
Acute, nondisplaced fracture of the subcapital right femoral neck:
-traumatic and due to fall with likely a component of underlying osteoporosis
-s/p 04/03 closed reduction cannulated screw fixation right femoral neck fracture
-PT/OT
-acute blood loss anemia due to surgery, AM Hb pending
Other problems:
Essential HTN: cont Norvasc
HLD: cont statin
h/o CVA: resume Plavix, cont statin
Depression: cont Prozac
Dementia
Overactive bladder: cont Gemtesa
Trigeminal Neuralgia: cont Trileptal
FULL/Lovenox
Anticipated Discharge: Within 24 hours
Subjective/Interval History
-
Date of Service: April 05, 2025
When asked how she's feeling pt just smiles.
Objective Data
-
Labs:
Laboratory Results
04/05/25
06:00
WBC Pending
Hgb Pending
Hct Pending
Plt Count Pending
Sodium Pending
Potassium Pending
Chloride Pending
Carbon Dioxide Pending
BUN Pending
Creatinine Pending
Glucose Pending
Calcium Pending
Vital Signs:
Vital Signs
Temp Pulse Resp BP Pulse Ox
97 F 78 17 145/56 98
04/05/25 07:33 04/05/25 07:33 04/05/25 07:33 04/05/25 07:33 04/05/25 07:33
I&O
04/04/25 04/05/25 04/06/25
06:59 06:59 06:59
Intake Total 50 / 50 940 / 940
Balance 50 / 50 940 / 940
[2025-04-05] MEDS: PLAVIX 75 MG PO (11:21)
[2025-04-05 13:13] LABS: Hematocrit 26.5 % (37.0-47.0); Hemoglobin 9.3 g/dL (12.0-16.0); Mean Corp Hgb Conc. 35.1 g/dL (33.0-37.0); Mean Corpuscular Volume 84.4 fL (81.0-99.0); Platelet Count 130 10^3/uL (130-400); Red Cell Dist. Width 14.4 % (11.5-14.5)
[2025-04-05 13:43] LABS: Blood Urea Nitrogen 40 mg/dl (7-17); Calcium 9.2 mg/dl (8.4-10.2); Carbon Dioxide 29 mmol/L (22-30); Chloride 98 mmol/L (98-107); Estimated Creatinine Clearance 42 ml/min; Glucose 122 mg/dl (70-99); Potassium 3.6 mmol/L (3.5-5.1); Sodium 131 mmol/L (135-145); eGFR > 60.00
[2025-04-05 15:44] VITALS: BP 123/75
[2025-04-05] MEDS: CRESTOR 5 MG PO (17:21)
[2025-04-05] MEDS: ULTRAM 25 MG PO (21:44)
[2025-04-05 23:00] VITALS: BP 161/70
[2025-04-06 07:00] VITALS: BP 143/77
[2025-04-06 09:04] VITALS: BP 151/83
[2025-04-06] MEDS: PLAVIX 75 MG PO (09:05)
[2025-04-06] MEDS: KCL 20 MEQ PO (09:05)
[2025-04-06] MEDS: COLACE 100 MG PO ×2 (09:05→21:12)
[2025-04-06] MEDS: PROZAC 20 MG PO (09:05)
[2025-04-06] MEDS: LOVENOX 40 MG SC (09:06)
[2025-04-06] MEDS: NORVASC 5 MG PO (09:06)
[2025-04-06] MEDS: TRILEPTAL 600 MG PO ×3 (09:06→21:13)
[2025-04-06 11:00] VITALS: BP 165/81
--- NOTE | 2025-04-06 12:03 | W.PN.HOSP.TC ---
Today's Communication/Plan
-
see plan
Assessment / Plan
Assessment / Plan
Admission summary: 89-year-old female with a history of advanced dementia, hypertension, previous stroke, trigeminal neuralgia, hyperlipidemia who presented with worsening overall functional status and recurrent falls, which is atypical for her. She
was evaluated in the Emergency Room yesterday after multiple falls at home; head and neck CT scans were unremarkable. During that visit, she became agitated and was administered Haldol and Ativan. Case management assessed her, and her daughter
agreed to discharge her home. Today, her condition persists, prompting further evaluation. She is a limited historian due to significant cognitive impairment and was disoriented to time and place, unable to follow simple commands. All history taken
from daughter at bedside, patient had pain on palpation of the lateral aspect of the right hip, and decreased active range of motion in internal rotation of the right hip.
Gen: NAD, Awake and alert
Eyes: EOMI, PERRLA, no scleral icterus.
Neck: supple.
CV: remains RRR, +S1/S2, 2/6 systolic murmur
Resp: CTAB anteriorly, no rales, wheezes, or rhonchi.
Abd: +BS, soft, NT, ND
Skin: No rashes
Neuro: CN 2-12 intact, non-focal.
Psych: Normal mood and affect.
CT pelvis: Acute, nondisplaced fracture of the subcapital right femoral neck. Subtle fracture plane, best seen at the anterior periphery of the right femur (series 202, image 46). No hip joint dislocation. Acute fracture of the right inferior pubic
ramus with mild displacement. Mild deformities at the junction of the right anterior acetabulum with the right superior pubic ramus, at the superior margin of the right pubic body, and at the anterior aspect of the right sacral ala, also suspicious
for acute nondisplaced fractures.
Acute, nondisplaced fracture of the subcapital right femoral neck:
-traumatic and due to fall with likely a component of underlying osteoporosis
-s/p 12/18 closed reduction cannulated screw fixation right femoral neck fracture
-PT/OT
-acute blood loss anemia due to surgery, Hb stable and now improving
Other problems:
Hypokalemia: 40meq PO K, check Mg
Essential HTN: cont Norvasc
HLD: cont statin
h/o CVA: cont Plavix/statin
Depression: cont Prozac
Dementia
Overactive bladder: cont Gemtesa
Trigeminal Neuralgia: cont Trileptal
Patient's daughter updated at bedside.
FULL/Lovenox
Dispo: Goal for d/c tomorrow
Anticipated Discharge: Within 24 hours
Subjective/Interval History
-
Date of Service: April 06, 2025
Due to chronic aphasia patient unable to answer questions at this time.
Objective Data
-
Vital Signs:
Vital Signs
Temp Pulse Resp BP Pulse Ox
98.1 F 77 18 151/83 100
04/06/25 09:04 04/06/25 09:04 04/06/25 09:04 04/06/25 09:04 04/06/25 09:04
I&O
04/05/25 04/06/25 04/07/25
06:59 06:59 06:59
Intake Total 940 / 940 840 / 840
Balance 940 / 940 840 / 840
[2025-04-06 12:43] LABS: Hematocrit 31.1 % (37.0-47.0); Hemoglobin 11.0 g/dL (12.0-16.0); Mean Corp Hgb Conc. 35.4 g/dL (33.0-37.0); Mean Corpuscular Volume 82.3 fL (81.0-99.0); Platelet Count 176 10^3/uL (130-400); Red Cell Dist. Width 14.3 % (11.5-14.5)
[2025-04-06 12:53] LABS: Blood Urea Nitrogen 14 mg/dl (7-17); Calcium 9.5 mg/dl (8.4-10.2); Carbon Dioxide 30 mmol/L (22-30); Chloride 101 mmol/L (98-107); Estimated Creatinine Clearance 49 ml/min; Glucose 98 mg/dl (70-99); Potassium 3.4 mmol/L (3.5-5.1); Sodium 136 mmol/L (135-145); eGFR > 60.00
[2025-04-06] MEDS: KCL 40 MEQ PO (13:12)
[2025-04-06 13:14] LABS: Magnesium 1.3 mg/dl (1.6-2.3)
--- NOTE | 2025-04-06 14:20 | CM ---
Met with [facility]
PT rec SNF
Medicare[employer] given to dtrs - would like referrals placed to [facility] - referrals placed in [facility]
Will need ins authorization
PLAN: SNF, pending bed availability, will need ins auth once bed secured
[2025-04-06 15:00] VITALS: BP 142/81
[2025-04-06 15:25] VITALS: BP 138/71; PULSE 82
[2025-04-06] MEDS: CRESTOR 5 MG PO (16:59)
[2025-04-06 23:00] VITALS: BP 117/59
[2025-04-07 05:20] VITALS: BMI 26.4
[2025-04-07 05:44] LABS: Hematocrit 28.9 % (37.0-47.0); Hemoglobin 10.0 g/dL (12.0-16.0); Mean Corp Hgb Conc. 34.6 g/dL (33.0-37.0); Mean Corpuscular Volume 85.0 fL (81.0-99.0); Platelet Count 150 10^3/uL (130-400); Red Cell Dist. Width 14.2 % (11.5-14.5)
[2025-04-07 06:42] LABS: Blood Urea Nitrogen 19 mg/dl (7-17); Calcium 9.5 mg/dl (8.4-10.2); Carbon Dioxide 28 mmol/L (22-30); Chloride 102 mmol/L (98-107); Estimated Creatinine Clearance 55 ml/min; Glucose 90 mg/dl (70-99); Potassium 3.8 mmol/L (3.5-5.1); Sodium 135 mmol/L (135-145); eGFR > 60.00
[2025-04-07 07:34] VITALS: BP 142/69
[2025-04-07] MEDS: LOVENOX 40 MG SC (07:56)
[2025-04-07] MEDS: PLAVIX 75 MG PO (07:56)
[2025-04-07] MEDS: KCL 20 MEQ PO (07:56)
[2025-04-07] MEDS: NORVASC 5 MG PO (07:56)
[2025-04-07] MEDS: PROZAC 20 MG PO (07:56)
[2025-04-07] MEDS: COLACE 100 MG PO ×2 (07:56→21:20)
[2025-04-07] MEDS: TRILEPTAL 600 MG PO ×3 (07:56→21:24)
--- NOTE | 2025-04-07 08:40 | W.PN.HOSP.TC ---
Today's Communication/Plan
-
see plan
Assessment / Plan
Assessment / Plan
Admission summary: 89-year-old female with a history of advanced dementia, hypertension, previous stroke, trigeminal neuralgia, hyperlipidemia who presented with worsening overall functional status and recurrent falls, which is atypical for her. She
was evaluated in the Emergency Room yesterday after multiple falls at home; head and neck CT scans were unremarkable. During that visit, she became agitated and was administered Haldol and Ativan. Case management assessed her, and her daughter
agreed to discharge her home. Today, her condition persists, prompting further evaluation. She is a limited historian due to significant cognitive impairment and was disoriented to time and place, unable to follow simple commands. All history taken
from daughter at bedside, patient had pain on palpation of the lateral aspect of the right hip, and decreased active range of motion in internal rotation of the right hip.
Gen: NAD, Awake and alert
Eyes: EOMI, PERRLA, no scleral icterus.
Neck: supple.
CV: continues to remain RRR, +S1/S2, 2/6 systolic murmur
Resp: remains CTAB anteriorly, no rales, wheezes, or rhonchi.
Abd: remains +BS, soft, NT, ND
Skin: No rashes
Neuro: CN 2-12 intact, non-focal.
Psych: Normal mood and affect.
CT pelvis: Acute, nondisplaced fracture of the subcapital right femoral neck. Subtle fracture plane, best seen at the anterior periphery of the right femur (series 202, image 46). No hip joint dislocation. Acute fracture of the right inferior pubic
ramus with mild displacement. Mild deformities at the junction of the right anterior acetabulum with the right superior pubic ramus, at the superior margin of the right pubic body, and at the anterior aspect of the right sacral ala, also suspicious
for acute nondisplaced fractures.
Acute, nondisplaced fracture of the subcapital right femoral neck:
-traumatic and due to fall with likely a component of underlying osteoporosis
-s/p 04/03 closed reduction cannulated screw fixation right femoral neck fracture
-PT/OT
-acute blood loss anemia due to surgery, Hb stable
Other problems:
Hypokalemia, resolved
Hypomagnesemia, 4g IV Mg, start PO Mg tonight
Essential HTN: cont Norvasc
HLD: cont statin
h/o CVA: cont Plavix/statin
Depression: cont Prozac
Dementia
Overactive bladder: cont Gemtesa
Trigeminal Neuralgia: cont Trileptal
FULL/Lovenox
Medically cleared for d/c after IV Mg given.
Anticipated Discharge: Today
Subjective/Interval History
-
Date of Service: April 07, 2025
Pt with expressive aphasia. Smiles and says 'hi' when spoken to.
Objective Data
-
Labs:
Laboratory Results
04/07/25
05:28
WBC 2.7 L
Hgb 10.0 L
Hct 28.9 L
Plt Count 150
Sodium 135
Potassium 3.8
Chloride 102
Carbon Dioxide 28
BUN 19 H
Creatinine 0.5 L
Glucose 90
Calcium 9.5
Vital Signs:
Vital Signs
Temp Pulse Resp BP Pulse Ox
99.0 F 69 18 142/69 97
04/07/25 07:34 04/07/25 07:34 04/07/25 07:34 04/07/25 07:34 04/07/25 07:34
I&O
04/06/25 04/07/25 04/08/25
06:59 06:59 06:59
Intake Total 840 / 840 0 / 0
Output Total 450 / 450
Balance 840 / 840 0 / 0 -450 / -450
[2025-04-07] MEDS: MAGNESIUM SULFATE 100 IV (09:54)
[2025-04-07 10:59] VITALS: BP 127/62; PULSE 83
[2025-04-07] MEDS: MIRALAX 17 GRAMS PO (11:17)
[2025-04-07 15:47] VITALS: BP 129/65
--- NOTE | 2025-04-07 16:40 | CM ---
CM following for discharge to SNF. Bed available at [facility] tomorrow. No beds available at [facility] or [facility] can check again tomorrow regarding change in bed availability if family desires.
[2025-04-07] MEDS: TYLENOL 325 MG PO (16:58)
[2025-04-07] MEDS: CRESTOR 5 MG PO (16:59)
[2025-04-07] MEDS: MAGNESIUM OXIDE 400 MG PO (21:19)
[2025-04-07] MEDS: MELATONIN 3 MG PO (21:24)
[2025-04-07] MEDS: SENOKOT-S 1 TABLET PO (22:13)
[2025-04-07 23:00] VITALS: BP 145/75
[2025-04-08 06:27] LABS: Hematocrit 29.1 % (37.0-47.0); Hemoglobin 9.7 g/dL (12.0-16.0); Mean Corp Hgb Conc. 33.3 g/dL (33.0-37.0); Mean Corpuscular Volume 85.3 fL (81.0-99.0); Platelet Count 160 10^3/uL (130-400); Red Cell Dist. Width 14.4 % (11.5-14.5)
[2025-04-08 06:52] LABS: Blood Urea Nitrogen 20 mg/dl (7-17); Calcium 9.5 mg/dl (8.4-10.2); Carbon Dioxide 28 mmol/L (22-30); Chloride 99 mmol/L (98-107); Estimated Creatinine Clearance 55 ml/min; Glucose 87 mg/dl (70-99); Potassium 3.7 mmol/L (3.5-5.1); Sodium 132 mmol/L (135-145); eGFR > 60.00
[2025-04-08 07:00] VITALS: BP 148/65
[2025-04-08 07:46] VITALS: BP 148/65
[2025-04-08] MEDS: KCL 20 MEQ PO (08:16)
[2025-04-08] MEDS: MAGNESIUM OXIDE 400 MG PO ×2 (08:16→19:53)
[2025-04-08] MEDS: NORVASC 5 MG PO (08:16)
[2025-04-08] MEDS: PROZAC 20 MG PO (08:16)
[2025-04-08] MEDS: PLAVIX 75 MG PO (08:16)
[2025-04-08] MEDS: COLACE 100 MG PO ×2 (08:17→19:53)
[2025-04-08] MEDS: TRILEPTAL 600 MG PO ×2 (08:17→15:11)
[2025-04-08] MEDS: LOVENOX 40 MG SC (08:17)
--- NOTE | 2025-04-08 08:54 | W.PN.HOSP.TC ---
Today's Communication/Plan
-
d/c
Assessment / Plan
Assessment / Plan
Admission summary: 89-year-old female with a history of advanced dementia, hypertension, previous stroke, trigeminal neuralgia, hyperlipidemia who presented with worsening overall functional status and recurrent falls, which is atypical for her. She
was evaluated in the Emergency Room yesterday after multiple falls at home; head and neck CT scans were unremarkable. During that visit, she became agitated and was administered Haldol and Ativan. Case management assessed her, and her daughter
agreed to discharge her home. Today, her condition persists, prompting further evaluation. She is a limited historian due to significant cognitive impairment and was disoriented to time and place, unable to follow simple commands. All history taken
from daughter at bedside, patient had pain on palpation of the lateral aspect of the right hip, and decreased active range of motion in internal rotation of the right hip.
Gen: NAD, Awake and alert
Eyes: EOMI, PERRLA, no scleral icterus.
Neck: supple.
CV: continues to remain RRR, +S1/S2, 2/6 systolic murmur
Resp: remains CTAB anteriorly, no rales, wheezes, or rhonchi.
Abd: remains +BS, soft, NT, ND
Skin: No rashes
Neuro: CN 2-12 intact, non-focal.
Psych: Normal mood and affect.
CT pelvis: Acute, nondisplaced fracture of the subcapital right femoral neck. Subtle fracture plane, best seen at the anterior periphery of the right femur (series 202, image 46). No hip joint dislocation. Acute fracture of the right inferior pubic
ramus with mild displacement. Mild deformities at the junction of the right anterior acetabulum with the right superior pubic ramus, at the superior margin of the right pubic body, and at the anterior aspect of the right sacral ala, also suspicious
for acute nondisplaced fractures.
Acute, nondisplaced fracture of the subcapital right femoral neck:
-traumatic and due to fall with likely a component of underlying osteoporosis
-s/p 04/03 closed reduction cannulated screw fixation right femoral neck fracture
-PT/OT
-acute blood loss anemia due to surgery, Hb stable
Other problems:
Hypokalemia, resolved
Hypomagnesemia, s/p 4g IV Mg, started on PO Mg, recheck Mg
Essential HTN: cont Norvasc
HLD: cont statin
h/o CVA: cont Plavix/statin
Depression: cont Prozac
Dementia
Overactive bladder: cont Gemtesa
Trigeminal Neuralgia: cont Trileptal
FULL/Lovenox
Remains medically cleared for d/c since 04/07/25.
Anticipated Discharge: Today
Subjective/Interval History
-
Date of Service: April 08, 2025
Currently aphasic.
Objective Data
-
Labs:
Laboratory Results
04/08/25
05:28
WBC 3.8 L
Hgb 9.7 L
Hct 29.1 L
Plt Count 160
Sodium 132 L
Potassium 3.7
Chloride 99
Carbon Dioxide 28
BUN 20 H
Creatinine 0.5 L
Glucose 87
Calcium 9.5
Vital Signs:
Vital Signs
Temp Pulse Resp BP Pulse Ox
98.5 F 71 12 148/65 99
04/08/25 07:00 04/08/25 07:00 04/08/25 07:00 04/08/25 07:00 04/08/25 07:00
I&O
04/07/25 04/08/25 04/09/25
06:59 06:59 06:59
Intake Total 0 / 0 840 / 840
Output Total 450 / 450
Balance 0 / 0 390 / 390
[2025-04-08 09:56] LABS: Magnesium 1.7 mg/dl (1.6-2.3)
[2025-04-08 14:42] VITALS: BP 113/76; PULSE 80; PULSE 81; O2SAT 99
[2025-04-08 15:05] VITALS: BP 133/73
--- NOTE | 2025-04-08 15:57 | CM ---
Patient has been approved for transfer to [facility] today. Authorization number [id number].
Dr. Diaz notified of same via [employer]. Ambulance transport requested for discharge to [facility].
[facility] Report: [phone]
[facility]
[2025-04-08] MEDS: FLUZONE HIGH-DOSE 2025-26 0.5 ML IM (16:57)
[2025-04-08] MEDS: CRESTOR 5 MG PO (16:59)
--- NOTE | 2025-04-09 15:26 | W.DCSUMMARY ---
Discharge Summary
Discharge Data
Date of Admission: 04/02/25
Date of Discharge: 04/08/25
-
Pending Results: No
Hospital Course
Primary diagnoses:
Acute, nondisplaced fracture of the subcapital right femoral neck s/p 04/03 closed reduction cannulated screw fixation right femoral neck fracture
Acute blood loss anemia due to surgery
Secondary diagnoses:
Hypokalemia
Hypomagnesemia
Essential hypertension
Hyperlipidemia
h/o cerebrovascular accident with resulting expressive aphasia
Depression
Dementia
Overactive bladder
Trigeminal Neuralgia
Consults:
Orthopedics
Imaging:
CT pelvis: Acute, nondisplaced fracture of the subcapital right femoral neck. Subtle fracture plane, best seen at the anterior periphery of the right femur (series 202, image 46). No hip joint dislocation. Acute fracture of the right inferior pubic
ramus with mild displacement. Mild deformities at the junction of the right anterior acetabulum with the right superior pubic ramus, at the superior margin of the right pubic body, and at the anterior aspect of the right sacral ala, also suspicious
for acute nondisplaced fractures.
Hospital course: 89-year-old female who presented with chief complaint of right hip pain after recent fall as outlined in the H&P done on admission. Imaging above. The patient underwent closed reduction cannulated screw fixation right femoral neck
fracture on 04/03/25 and tolerated the procedure well. She was discharged in medically stable condition.
Discharge Plan
-
Patient Disposition: [facility]/SNF
Discharge Diagnosis/Procedures: Acute, nondisplaced fracture of the subcapital right femoral neck s/p 04/03 closed reduction cannulated screw fixation right femoral neck fracture
Condition: Good
Diet: As tolerated
Activity: As tolerated
Driving Restrictions: Not until seen by your Dr
Referrals:
Hilary Brown MD [Family Provider] - in less than 1 week
Prescriptions:
New
polyethylene glycol 3350 17 gram Powder In Packet
17 g PO DAILYPRN PRN (Reason: constipation) Qty: 0 0RF
melatonin 3 mg Tablet
3 mg PO HS Qty: 1 0RF
magnesium oxide 400 mg (241.3 mg magnesium) Tablet
400 mg PO BID Qty: 0 0RF
bisacodyl 10 mg Suppository
10 mg ND [id number] PRN (Reason: constipation) Qty: 0 0RF
docusate sodium 100 mg Capsule
100 mg PO BID Qty: 0 0RF
enoxaparin 40 mg/0.4 mL Syringe
40 mg SC DAILY Qty: 0 0RF
Continued
clopidogrel 75 MG tablet
75 mg PO DAILY
amlodipine 5 MG tablet
5 mg PO DAILY
fluoxetine 20 mg capsule
20 mg PO DAILY
fluticasone propionate 50 mcg/actuation [place],Suspension
1 spray INTRANASAL DAILY
omega [id number] oil [Fish Oil] 1,000 mg (120 mg-180 mg) Capsule
1 cap PO DAILY
acetaminophen 325 mg Tablet
325 mg PO DAILYPRN PRN (Reason: mild pain)
oxcarbazepine 300 mg Tablet
600 mg PO TID
rosuvastatin 5 mg Tablet
5 mg PO QPM
potassium chloride 20 mEq Tablet Extended Release
20 meq PO DAILY
Gemtesa 75 mg Tablet
75 mg PO DAILY
Discharge Orders:
Discharge Patient (As Directed); Ordered 04/08/25
Ordered By: Aleksandar Khanna
Discharge Date and Time
Discharge Date/Time: 04/08/25 20:43
Print Language: FRENCH
== END 2025-04-08 20:43 | DRG 956 ==
LOC: 3 WEST ACU 12:28
PROVIDERS: ADMITTING PHYSICIAN General Practice; ATTENDING PHYSICIAN Internal Medicine; CONSULT PHYSICIAN Orthopaedic Surgery; EMERGENCY PHYSICIAN Emergency Medicine; FAMILY PHYSICIAN Surgery
PROC: 0QS634Z Reposition Right Upper Femur with Internal Fixation Device, Percutaneous Approach (ICD-10-PCS; 2025-04-03)
PROC: 3E02340 Introduction of Influenza Vaccine into Muscle, Percutaneous Approach (ICD-10-PCS; 2025-04-08)
DX: S72.011A Unspecified intracapsular fracture of right femur, initial encounter for closed fracture (principal); S32.591A Other specified fracture of right pubis, initial encounter for closed fracture; D62 Acute posthemorrhagic anemia; F03.911 Unspecified dementia, unspecified severity, with agitation; F03.93 Unspecified dementia, unspecified severity, with mood disturbance; R29.6 Repeated falls; F32.A Depression, unspecified; R41.89 Other symptoms and signs involving cognitive functions and awareness; E83.42 Hypomagnesemia; I10 Essential (primary) hypertension; E87.6 Hypokalemia; G50.0 Trigeminal neuralgia; N32.81 Overactive bladder; E78.5 Hyperlipidemia, unspecified; W19.XXXA Unspecified fall, initial encounter; Y93.9 Activity, unspecified; Y92.9 Unspecified place or not applicable; Z96.653 Presence of artificial knee joint, bilateral; Z79.899 Other long term (current) drug therapy; Z79.02 Long term (current) use of antithrombotics/antiplatelets; Z23 Encounter for immunization; I69.320 Aphasia following cerebral infarction
CPT/HCPCS: 72192; 73502; 76000; 80048; 80156; 83735; 85025; 85027; 90662; 97116; 97163; 97167; 97530; 97535; 99285; C1713; C1769; G0008